=== PATIENT | male | born 1965 | race African-American/Black ===

== ENCOUNTER 2016-08-16 13:42 | Emergency (ER) | payer OTHER ==
[2016-08-16 15:20] LABS: BASOPHIL 1.9 % (0-2); HCT 37.7 % (42.0-52.0); HGB 12.3 g/dl (13.2-18.0); LYMPHOCYTE 30.7 % (15-48); MCHC 32.6 g/dL (32.0-36.0); MCV 88.9 fL (78.0-100.0); MONOCYTE 15.8 % (0-12); MPV 10.3 fL (6.0-9.5); NEUTROPHIL 42.6 % (41-80); PLT 334 K/uL (150-400); RBC 4.24 M/uL (4.70-6.00); RDW 16.5 % (11.5-14.0); WBC 4.7 K/uL (4.0-10.5)
[2016-08-16 15:33] LABS: INR 1.15 (0.9-1.2); PROTHROMBIN TIME 14.3 SECONDS (11.7-14.0); PTT 30.5 SECONDS (23.2-31.4)
[2016-08-16 15:39] LABS: ALBUMIN 4.1 g/dL (3.5-5.0); BILIRUBIN - TOTAL 0.5 mg/dL (0.1-1.0); CREATININE 1.6 mg/dL (0.7-1.2); GLOBULIN (CALCULATION) 4.3 g/dL (2.2-4.2); MAGNESIUM 2.04 mg/dL (1.40-2.10); POTASSIUM 4.9 mmol/L (3.5-5.1); TOTAL PROTEIN 8.4 g/dL (6.4-8.3)
[2016-08-16 15:44] LABS: CKMB 1.2 ng/mL (0.97-4.94); TROPONIN T 0.032 ng/mL
== END 2016-08-16 17:15 | disposition home or self-care (01) ==
LOC: FER 13:42
PROVIDERS: Emergency Medicine
DX: R05 Cough (principal); I11.0 Hypertensive heart disease with heart failure; I50.9 Heart failure, unspecified; J44.9 Chronic obstructive pulmonary disease, unspecified; K21.9 Gastro-esophageal reflux disease without esophagitis; Z86.73 Personal history of transient ischemic attack (TIA), and cerebral infarction without residual deficits; Z79.899 Other long term (current) drug therapy; Z95.810 Presence of automatic (implantable) cardiac defibrillator
CPT/HCPCS: 36415; 71010; 80053; 80162; 82550; 82553; 83735; 83874; 83880; 84484; 85025; 85610; 85730; 93005

== ENCOUNTER 2016-09-11 09:54 | Emergency (ER) | payer OTHER | END 2016-09-11 10:26 | disposition home or self-care (01) | LOC: FER 09:54 | DX: Z76.0 Encounter for issue of repeat prescription (principal); I10 Essential (primary) hypertension; G40.909 Epilepsy, unspecified, not intractable, without status epilepticus; Z86.73 Personal history of transient ischemic attack (TIA), and cerebral infarction without residual deficits; Z79.82 Long term (current) use of aspirin; Z79.899 Other long term (current) drug therapy; Z95.0 Presence of cardiac pacemaker | CPT/HCPCS: 99281 ==

== ENCOUNTER 2016-11-27 13:38 | Emergency (ER) | payer OTHER ==
[2016-11-27 16:04] LABS: BASOPHIL 0.8 % (0-2); EOSINOPHIL 10.7 % (0-5); HCT 30.2 % (42.0-52.0); HGB 9.3 g/dl (13.2-18.0); LYMPHOCYTE 21.6 % (15-48); MCH 25.4 pg (25.0-31.0); MCHC 30.8 g/dL (32.0-36.0); MCV 82.5 fL (78.0-100.0); MONOCYTE 14.3 % (0-12); MPV 11.7 fL (6.0-9.5); NEUTROPHIL 52.6 % (41-80); PLT 229 K/uL (150-400); RBC 3.66 M/uL (4.70-6.00); RDW 19.7 % (11.5-14.0); WBC 5.3 K/uL (4.0-10.5)
[2016-11-27 16:24] LABS: TROPONIN T < 0.010 ng/mL
[2016-11-27 16:25] LABS: ALBUMIN 3.3 g/dL (3.5-5.0); BILIRUBIN - TOTAL 1.2 mg/dL (0.1-1.0); CREATININE 1.4 mg/dL (0.7-1.2); GLOBULIN (CALCULATION) 3.5 g/dL (2.2-4.2); POTASSIUM 4.1 mmol/L (3.5-5.1); TOTAL PROTEIN 6.8 g/dL (6.4-8.3)
[2016-11-27 16:26] LABS: LACTIC ACID 1.9 mmol/L (0.5-2.2); PRO-BNP 1644 pg/mL (0-125)
== END 2016-11-27 20:30 | disposition home or self-care (01) ==
LOC: FER 13:38
PROVIDERS: Internal Medicine
DX: I42.9 Cardiomyopathy, unspecified (principal); I11.0 Hypertensive heart disease with heart failure; I50.9 Heart failure, unspecified; R60.9 Edema, unspecified; F17.210 Nicotine dependence, cigarettes, uncomplicated; Z79.01 Long term (current) use of anticoagulants; Z79.82 Long term (current) use of aspirin; Z79.899 Other long term (current) drug therapy
CPT/HCPCS: 36415; 71010; 80053; 83605; 83880; 84484; 85025; 87040; 93005